=== PATIENT | female | born 1945 | race Caucasian/White ===

== ENCOUNTER 2016-12-26 13:55 | Outpatient (CLI) | payer OTHER ==
[2016-03-21 14:54] VITALS: BMI 25.7
[~2016-12-26 13:55] MED LIST: ALEN10TA6 PO; ALLO100T PO; CAL1TABL5 PO; GLIP10TA11 PO; GLU850 PO; LEVO75TA7 PO; MULT-1159 PO; RIVA10TA PO; TRAM50TA92 PO
== END 2016-12-26 19:27 | disposition home or self-care (01) ==
LOC: SMA 13:55
PROVIDERS: ATTEND General Practice
DX: M47.896 Other spondylosis, lumbar region (principal); R92.8 Other abnormal and inconclusive findings on diagnostic imaging of breast
CPT/HCPCS: 73510; 77051; G0204; G0206

== ENCOUNTER 2018-02-23 09:41 | Outpatient (CLI) | payer OTHER | END 2018-02-23 17:47 | disposition home or self-care (01) | LOC: SMA 09:41 | DX: Z12.31 Encounter for screening mammogram for malignant neoplasm of breast (principal) | CPT/HCPCS: 77067 ==

== ENCOUNTER 2024-06-30 12:02 | Outpatient (CLI) | payer OTHER ==
[~2024-06-30 12:02] MED LIST changes: +ALEN10TA25 PO; -ALEN10TA6 PO
== END 2024-06-30 18:37 | disposition home or self-care (01) ==
LOC: SRD 12:02
PROVIDERS: ATTEND Internal Medicine
DX: Z01.818 Encounter for other preprocedural examination (principal); I70.0 Atherosclerosis of aorta; M47.814 Spondylosis without myelopathy or radiculopathy, thoracic region
CPT/HCPCS: 71046

== ENCOUNTER 2024-07-23 10:44 | Emergency (ER) | payer OTHER ==
[~2024-07-23] VITALS: Ht 160 cm; Wt 68.0 kg
[2024-07-23 10:56] VITALS: BP_SYST 122; PULSE 95; RESP 15; TEMP 97.7; O2SAT 95
[2024-07-23 11:18] LABS: BASOPHILS % (AUTO) 0.5 % (0.0-2.0); EOSINOPHILS # (AUTO) 0.3 K/uL (0.0-0.4); EOSINOPHILS % (AUTO) 3.1 % (0.0-4.0); HEMOGLOBIN 11.8 g/dL (12.0-16.0); LYMPHOCYTES # (AUTO) 2.1 K/uL (1.0-5.5); LYMPHOCYTES % (AUTO) 23.7 % (20.5-51.5); MEAN CORPUSCULAR HEMOGLOBIN 31 pg (27-31); MEAN CORPUSCULAR HGB CONC 33 % (32-36); MEAN CORPUSCULAR VOLUME 94 fL (79.0-98.0); MONOCYTES # (AUTO) 0.6 K/uL (0.0-1.0); NEUTROPHILS # (AUTO) 5.7 K/uL (1.8-7.7); NEUTROPHILS % (AUTO) 65.7 % (40.0-70.0); PLATELET COUNT (AUTO) 426 K/uL (130-430); RED BLOOD CELL COUNT(AUTO) 3.83 MIL/uL (4.2-6.2); RED CELL DISTRIBUTION WIDTH 13.9 % (9.0-15.0); WHITE BLOOD COUNT (AUTO) 8.7 K/uL (4.8-10.8)
[2024-07-23 11:41] LABS: ALANINE AMINOTRANSFERASE 13 U/L (12-78); ALBUMIN 2.4 g/dL (3.4-4.8); ANION GAP 9 (5-15); ASPARTATE AMINOTRANSFERASE 19 U/L (10-37); BILIRUBIN,DIRECT 0.3 mg/dL (0.0-0.3); CALCIUM 8.5 mg/dL (8.4-11.0); CARBON DIOXIDE 26 mmol/L (23-29); CHLORIDE 104 mmol/L (98-107); CREATININE 0.75 mg/dL (0.55-1.30); GLUCOSE 182 mg/dL (74-106); SODIUM SERUM 139 mmol/L (136-145); TOTAL BILIRUBIN 0.6 mg/dL (0.0-1.0); UREA NITROGEN, BLOOD 11 mg/dL (8-21)
== END 2024-07-23 11:20 | disposition left against medical advice (07) ==
LOC: SED 10:44
DX: T81.89XA Other complications of procedures, not elsewhere classified, initial encounter (principal); Z90.710 Acquired absence of both cervix and uterus; Z91.011 Allergy to milk products; Z91.012 Allergy to eggs; Z88.8 Allergy status to other drugs, medicaments and biological substances
CPT/HCPCS: 36415; 80048; 80076; 85025; 99283